=== PATIENT | male | born 1945 | race Caucasian/White ===

== ENCOUNTER → 2017-07-17 | Day surgery (SDC) | payer BC, OTHER ==
[~2017-07-17] VITALS: Ht 177.8 cm; Wt 103.4 kg
[~2017-07-17] MED LIST: CATAPRES0.2 MG PO; CELEBREX200 MG PO; DETROL LA4 MG PO; DITROPAN XL10 MG PO; FLOMAX0.4 MG PO; GLUCOPHAGE1000 MG PO; GLUCOTROL5 MG PO; HORNY GOAT WEED PO; HUMALOG100 UNIT/2 SC; HYDROCHLOROTHIA25 MG PO; JANUVIA100 MG PO; LASIX20 MG PO; LIPITOR10 MG PO; LOTRIMIN ULTRA12 GM TP; PROTONIX40 MG PO; TOPROL XL25 MG PO
== END | disposition home or self-care (01) ==
LOC: SDC 08:11 → 2SOUTH 08:11 → EDSTATUS 13:23 → 2SOUTH 14:05
PROC: 0SJ Lower Joints, Inspection (ICD-10-PCS; principal; 2017-07-17)
DX: M47.816 Spondylosis without myelopathy or radiculopathy, lumbar region (principal); Z53.09 Procedure and treatment not carried out because of other contraindication; R94.39 Abnormal result of other cardiovascular function study

== ENCOUNTER 2017-07-22 21:48 | Inpatient (IN) | payer OTHER ==
[~2017-07-22] VITALS: Ht 177.8 cm; Wt 103.4 kg
[2017-07-23 08:42] VITALS: BP 155/91
[2017-07-23 08:51] LABS: POINT-OF-CARE METER ID UU14174212
[2017-07-23 17:47] LABS: POINT-OF-CARE METER ID UU13113675
[2017-07-23 18:15] LABS: HEMATOCRIT 32.7 % (38.0-50.0); MCV 92.1 FL (86-99)
[2017-07-23 21:20] VITALS: BP 144/82
[2017-07-24] VITALS (8 sets, daily range): BP systolic 110–166; BP diastolic 69–90
[2017-07-24 07:01] LABS: HEMATOCRIT 27.1 % (38.0-50.0); MCH 30.7 PG (29.0-34.0); MCHC 33.9 G/DL (30.0-36.0); MCV 90.3 FL (86-99); MEAN PLAT.VOLUME 10.1 uM^3 (9.0-12.4); PLATELET COUNT 163 K/uL (156-360); RBC DIS.WIDTH-CV 13.9 % (11.8-14.6); RBC DIS.WIDTH-SD 45.4 % (39-53); WHITE BLOOD COUNT 12.8 K/uL (4.1-10.2)
[2017-07-24 07:29] LABS: ANION GAP 9 MEQ/L (2-14); CHLORIDE 104 MEQ/L (99-109); GFR ESTIMATE (CALCULATED) > 59 mL/min/; GLUCOSE 174 mg/dL (70-99); POTASSIUM 4.1 MEQ/L (3.7-5.4); SAMPLE HEMOLYSIS CHECK 0; SAMPLE ICTERIC CHECK 0; SAMPLE LIPEMIA CHECK 0; SODIUM 139 MEQ/L (136-147); UREA NITROGEN (BUN) 17 mg/dL (9-23)
[2017-07-24 21:25] LABS: POINT-OF-CARE METER ID UU14117124
[2017-07-25 00:22] VITALS: BP 152/74
[2017-07-25 04:45] VITALS: BP 181/98
[2017-07-25 07:59] VITALS: BP 172/94
[2017-07-25 14:00] LABS: POINT-OF-CARE METER ID UU14117124
[2017-07-25 15:56] VITALS: BP 158/90
[2017-07-25 16:33] LABS: POINT-OF-CARE METER ID UU14117124
[2017-07-25 21:34] LABS: POINT-OF-CARE METER ID UU14117124
[2017-07-25 23:30] VITALS: BP 160/88
[2017-07-26 06:05] LABS: POINT-OF-CARE METER ID UU14117124; POINT-OF-CARE USER ID 606021424
[2017-07-26 06:42] LABS: POINT-OF-CARE METER ID UU14188577
[2017-07-26 08:17] VITALS: BP 143/87
[2017-07-26 11:32] LABS: POINT-OF-CARE METER ID UU14117124
[2017-07-26 15:57] LABS: POINT-OF-CARE METER ID UU14117124
[2017-07-26 16:43] VITALS: BP 151/82
[2017-07-26 21:27] LABS: POINT-OF-CARE METER ID UU14208753
[2017-07-27 00:19] VITALS: BP 161/77
[2017-07-27 04:39] VITALS: BP 162/85
[2017-07-27 06:40] LABS: POINT-OF-CARE METER ID UU14117124
[2017-07-27 07:18] LABS: EOSINOPHIL (%) 0.4 % (0-5); EOSINOPHIL COUNT 0.1 K/uL (0-0.3); HEMATOCRIT 26.6 % (38.0-50.0); IMMATURE GRANULOCYTE (%) 0.8 % (0.0-0.7); IMMATURE GRANULOCYTE COUNT 0.1 K/uL; INSTRUMENT ABS NEUTROPHIL CT 10.8 K/uL; LYMPHOCYTE COUNT 1.2 K/uL (1.0-2.8); MCH 30.5 PG (29.0-34.0); MCHC 33.8 G/DL (30.0-36.0); MCV 90.2 FL (86-99); MEAN PLAT.VOLUME 9.8 uM^3 (9.0-12.4); MONOCYTE (%) 10.4 % (3-12); MONOCYTE COUNT 1.4 K/uL (0-0.8); NEUTROPHIL (%) 79.4 % (45-76); NEUTROPHIL COUNT 10.8 K/uL (1.8-6.4); RBC DIS.WIDTH-CV 13.2 % (11.8-14.6); RBC DIS.WIDTH-SD 43.8 % (39-53); RED BLOOD COUNT 2.95 M/uL (4.00-5.50); WHITE BLOOD COUNT 13.5 K/uL (4.1-10.2)
[2017-07-27 07:19] LABS: PLATELET COUNT 232 K/uL (156-360)
[2017-07-27 07:50] LABS: ANION GAP 14 MEQ/L (2-14); CHLORIDE 92 MEQ/L (99-109); GFR ESTIMATE (CALCULATED) > 59 mL/min/; GLUCOSE 232 mg/dL (70-99); POTASSIUM 3.7 MEQ/L (3.7-5.4); SAMPLE HEMOLYSIS CHECK 0; SAMPLE ICTERIC CHECK 0; SAMPLE LIPEMIA CHECK 0; SODIUM 132 MEQ/L (136-147); UREA NITROGEN (BUN) 12 mg/dL (9-23)
[2017-07-27] MEDS ORDERED: DIAZEPAM10 MG PO (08:24)
[2017-07-27] MEDS ORDERED: NORCO 10/3251 TABLET PO (08:24)
[2017-07-27 08:31] VITALS: BP 146/72
[2017-07-27 11:37] LABS: POINT-OF-CARE METER ID UU14117124
[2017-07-27 11:56] VITALS: BP 152/73
== END 2017-07-27 14:34 | disposition swing bed (61) | DRG 460 ==
LOC: ENRESERV 21:48 → 2SOUTH 07-23 08:13 → ENRESERV 07-23 15:28 → 2SOUTH 07-23 16:31 → 3EAST 07-23 21:08
PROVIDERS: Anesthesiology; Neurological Surgery
DX: M47.816 Spondylosis without myelopathy or radiculopathy, lumbar region (principal); D62 Acute posthemorrhagic anemia; E66.9 Obesity, unspecified; I10 Essential (primary) hypertension; E11.9 Type 2 diabetes mellitus without complications; G47.30 Sleep apnea, unspecified; M50.90 Cervical disc disorder, unspecified, unspecified cervical region; M47.812 Spondylosis without myelopathy or radiculopathy, cervical region; M51.37 Other intervertebral disc degeneration, lumbosacral region; Z68.32 Body mass index [BMI] 32.0-32.9, adult
CPT/HCPCS: 72100; 76000; 80048; 82948; 85014; 85018; 85025; 85027; 86850; 86900; 86901; 86920; 90686; 94799; 97530 GO; C1821; J0330; J0690; J1100; J1170; J1815; J1940; J2250; J2405; J3010; J3370; J3480; P9016